=== PATIENT | female | born 1965 | race Two or more races ===

== ENCOUNTER 2016-09-08 08:46 | Emergency (ER) | payer MEDICARE ==
[~2016-09-08] VITALS: Ht 165.1 cm; Wt 65.8 kg
[2016-09-08] MEDS ORDERED: ORPHENADRINE CITRATE 60 MG/2 ML VIAL. IM ONE (10:00)
[2016-09-08] MEDS ORDERED: KETOROLAC TROMETHAMINE 60 MG/2 ML INJ. IM ONE (10:00)
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
[2016-09-08] MEDS ORDERED: HYDR-963 PO (10:20)
[2016-09-08] MEDS ORDERED: METH4TAB2 PO (10:20)
[2016-09-08 10:30] VITALS: BP 109/64
== END 2016-09-08 10:43 | disposition other institution (70) ==
LOC: ER 08:46
DX: G89.29 Other chronic pain (principal); M54.5 Low back pain; F31.9 Bipolar disorder, unspecified; F32.9 Major depressive disorder, single episode, unspecified; Z90.710 Acquired absence of both cervix and uterus; Z90.49 Acquired absence of other specified parts of digestive tract; Z98.51 Tubal ligation status
CPT/HCPCS: 96372; 99284; J1885; J2360

== ENCOUNTER 2016-10-21 11:36 | Emergency (ER) | payer BC ==
[~2016-10-21] VITALS: Ht 165.1 cm; Wt 63.0 kg
[~2016-10-21 11:36] MED LIST: HYDR-963 PO; METH4TAB2 PO
[2016-10-21] MEDS ORDERED: CYCL10TA2 PO (12:40)
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
== END 2016-10-21 12:47 | disposition home or self-care (01) ==
LOC: ER 11:51
DX: M54.41 Lumbago with sciatica, right side (principal); F31.9 Bipolar disorder, unspecified; G47.00 Insomnia, unspecified; Z90.49 Acquired absence of other specified parts of digestive tract; Z90.710 Acquired absence of both cervix and uterus; Z98.51 Tubal ligation status
CPT/HCPCS: 99283

== ENCOUNTER → 2016-12-26 | Outpatient (CLI) | payer BC ==
[2016-10-21 11:46] VITALS: BP 109/73
[~2016-12-26] MED LIST changes: +CYCL10TA2 PO
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
== END | disposition home or self-care (01) ==
LOC: RAD 08:25
PROVIDERS: ATTEND Family Medicine
DX: M25.531 Pain in right wrist (principal)
CPT/HCPCS: 73110

== ENCOUNTER → 2017-01-07 | Outpatient (CLI) | payer BC ==
[2016-10-21 11:46] VITALS: BP 109/73
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
== END | disposition home or self-care (01) ==
LOC: RAD 08:12
PROVIDERS: ATTEND Family Medicine
DX: M50.30 Other cervical disc degeneration, unspecified cervical region (principal)
CPT/HCPCS: 72040

== ENCOUNTER 2021-08-16 03:08 | Emergency (ER) | payer BC, MEDICARE ==
[2016-10-21 11:46] VITALS: BP 109/73
[~2021-08-16 03:08] MED LIST changes: +CYCL10TA19 PO; -CYCL10TA2 PO; +HYDR-3135 PO; -HYDR-963 PO
== END 2021-08-16 03:15 | disposition left against medical advice (07) ==
LOC: ER 03:08
DX: R10.9 Unspecified abdominal pain (principal); R51.9 Headache, unspecified; H57.89 Other specified disorders of eye and adnexa; Z53.21 Procedure and treatment not carried out due to patient leaving prior to being seen by health care provider

== ENCOUNTER 2021-09-03 20:58 | Observation (INO) | payer MEDICARE ==
[~2021-09-03] VITALS: Ht 165.1 cm; Wt 81.6 kg
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
[2021-09-03] MEDS ORDERED: ONDANSETRON PF 4 MG/2 ML VIAL. IVP ONE (22:00)
[2021-09-03] MEDS ORDERED: fentaNYL PF VIAL 100 MCG/2 ML VIAL IVP ONE ×2 (22:00→23:30)
[2021-09-03] MEDS ORDERED: IV NORMAL SALINE 1000ML BAG 1,000 ML IV ONE (22:00)
--- NOTE | 2021-09-03 22:20 | RAD ---
EXAM: ULTRASOUND ABDOMEN LIMITED CLINICAL HISTORY: Right upper quadrant pain, gallstones COMPARISON: None available. TECHNIQUE: Limited ultrasound examination of the right upper quadrant of the abdomen was performed. FINDINGS: The liver length measures 15.9 cm. The common bile duct measures 4.8 mm in transverse dimension. The gallbladder is mildly distended. The gallbladder wall thickness measures 4.5 mm. Multiple echogenicit ies identified within the gallbladder likely gallstones. Minimal pericholecystic fluid identified. Th e pancreas, aorta, IVC are not well-visualized. IMPRESSION: Cholelithiasis with mild gallbladder wall thickening with minimal pericholecystic fluid. Correlate fo r cholecystitis. Electronically signed by: Armand Kaur MD (09/03/2021 10:17 PM) [id number]
[2021-09-03 23:02] LABS: BASO % 1 % (0-3); EOS # 0.1 x10^3/uL (0.0-0.7); EOS % 2 % (0-3); HEMATOCRIT 34.9 % (36.0-47.0); HEMOGLOBIN 11.6 g/dL (12.0-15.5); LYMPH # 1.9 x10^3/uL (1.0-4.8); LYMPH % 36 % (24-48); MEAN CORPUSCULAR HEMOGLOBIN 31 pg (25-35); MEAN CORPUSCULAR HGB CONC 33 g/dL (31-37); MEAN CORPUSCULAR VOLUME 93 fL (79-100); MONO # 0.5 x10^3/uL (0.0-1.1); MONO % 10 % (0-9); NEUT # 2.8 x10^3/uL (1.8-7.7); NEUT % 52 % (31-73); PLATELET COUNT 329 x10^3/uL (140-400); RED BLOOD COUNT 3.77 x10^6/uL (3.50-5.40); RED CELL DISTRIBUTION WIDTH 14.6 % (11.5-14.5); WHITE BLOOD COUNT 5.4 x10^3/uL (4.0-11.0)
[2021-09-03 23:11] LABS: CALCIUM 8.7 mg/dL (8.5-10.1); CREATININE 0.8 mg/dL (0.6-1.0); GFR 73.9
[2021-09-03 23:19] LABS: ALBUMIN 3.5 g/dL (3.4-5.0); ALBUMIN/GLOBULIN RATIO 0.9 (1.0-1.7); TOTAL BILIRUBIN 0.3 mg/dL (0.2-1.0); TOTAL PROTEIN 7.2 g/dL (6.4-8.2)
[2021-09-03] MEDS ORDERED: FAMOTIDINE 20 MG/2 ML VIAL IVP ONE (23:30)
[2021-09-03] MEDS ORDERED: ONDANSETRON PF 4 MG/2 ML VIAL. IVP PRN (23:45)
[2021-09-04] VITALS (14 sets, daily range): BP systolic 98–140; BP diastolic 50–84
[2021-09-04] MEDS ORDERED: MORPHINE SULFATE 4 MG/ML INJ. IVP ONE
[2021-09-04] MEDS ORDERED: IV NORMAL SALINE 1000ML BAG 1,000 ML IV ONE
[2021-09-04] MEDS ORDERED: PIPERACILLIN/TAZOBACTAM 3.375 GM in IV NORMAL SALINE 50ML 50 ML IV ONE (00:15)
[2021-09-04] MEDS: MORPHINE SULFATE 4 MG/ML INJ. IVP PRN ×3 (03:38→08:46)
[2021-09-04] MEDS ORDERED: CLON0.5T PO (04:31)
[2021-09-04] MEDS ORDERED: AMIT25TA PO (04:31)
[2021-09-04] MEDS ORDERED: ZIPR20CA2 PO (04:31)
[2021-09-04 06:14] LABS: BASO % 1 % (0-3); EOS # 0.1 x10^3/uL (0.0-0.7); EOS % 2 % (0-3); HEMATOCRIT 34.8 % (36.0-47.0); HEMOGLOBIN 11.3 g/dL (12.0-15.5); LYMPH # 1.8 x10^3/uL (1.0-4.8); LYMPH % 34 % (24-48); MEAN CORPUSCULAR HEMOGLOBIN 30 pg (25-35); MEAN CORPUSCULAR HGB CONC 32 g/dL (31-37); MEAN CORPUSCULAR VOLUME 93 fL (79-100); MONO # 0.5 x10^3/uL (0.0-1.1); MONO % 10 % (0-9); NEUT # 2.8 x10^3/uL (1.8-7.7); NEUT % 53 % (31-73); PLATELET COUNT 310 x10^3/uL (140-400); RED BLOOD COUNT 3.74 x10^6/uL (3.50-5.40); RED CELL DISTRIBUTION WIDTH 14.8 % (11.5-14.5); WHITE BLOOD COUNT 5.3 x10^3/uL (4.0-11.0)
[2021-09-04 06:41] LABS: ALBUMIN 3.4 g/dL (3.4-5.0); CALCIUM 8.7 mg/dL (8.5-10.1); CREATININE 0.9 mg/dL (0.6-1.0); GFR 64.5; POTASSIUM 4.2 mmol/L (3.5-5.1); TOTAL BILIRUBIN 0.4 mg/dL (0.2-1.0); TOTAL PROTEIN 6.9 g/dL (6.4-8.2)
--- NOTE | 2021-09-04 08:14 | PDOC1 ---
History and Physical Date of Admission Date of Admission DATE: 09/04/21 TIME: 08:14 Identification/Chief Complaint Chief Complaint Abdominal pain Source Source: Patient History of Present Illness History of Present Illness Patient is a 55-year-old female with past medical history bipolar disorder and DDD, who presents to the ED with a complaint of right upper quadrant pain since yesterday. She reports a sudden onset of sharp pain, 10/10. She notes associated nausea and vomiting. Labs in the ED were largely unremarkable except for mild normocytic anemia. Ultrasound taken in the ED showed cholelithiasis with mild gallbladder wall thickening with minimal pericholecystic fluid. At the time of my evaluation patient is still complaining of significant pain. She is admitted for further medical management. Past Medical History Past Medical History Bipolar disorder, DDD Past Surgical History Past Surgical History Partial hysterectomy, carpal tunnel surgery, appendectomy Family History Family History DM2, HTN, CAD Social History Smoke: <1 pack per day ALCOHOL: none Drugs: None Current Problem List Problem List Problems Medical Problems: (1) Acute cholecystitis Status: Acute Current Medications Current Medications Current Medications Sodium Chloride 1,000 ml @ 1,000 mls/hr 1X ONCE IV Last administered on 09/03/21 21:42; Start 09/03/21 at 22:00; Stop 09/03/21 at 22:59; Status DC Ondansetron HCl (Zofran) 4 mg 1X ONCE IVP Last administered on 09/03/21 21:42; Start 09/03/21 at 22:00; Stop 09/03/21 at 22:01; Status DC Fentanyl Citrate (Fentanyl 2ml Vial) 50 mcg 1X ONCE IVP Last administered on 09/03/21 21:42; Start 09/03/21 at 22:00; Stop 09/03/21 at 22:01; Status DC Fentanyl Citrate (Fentanyl 2ml Vial) 50 mcg 1X ONCE IVP Last administered on 09/03/21at 23:02; Start 09/03/21 at 23:30; Stop 09/03/21 at 23:31; Status DC Famotidine (Pepcid Vial) 20 mg 1X ONCE IVP Last administered on 09/03/21at 23:14; Start 09/03/21 at 23:30; Stop 09/03/21 at 23:31; Status DC Morphine Sulfate (Morphine Sulfate) 4 mg 1X ONCE IVP Last administered on 09/04/21at 00:06; Start 09/04/21 at 00:00; Stop 09/04/21 at 00:01; Status DC Ondansetron HCl (Zofran) 4 mg PRN Q8HRS PRN IVP NAUSEA/VOMITING 1ST CHOICE Last administered on 09/04/21at 00:06; Start 09/03/21 at 23:45; Stop 09/04/21 at 23:44 Morphine Sulfate (Morphine Sulfate) 4 mg PRN Q2HR PRN IVP SEVERE PAIN 7-10 Last administered on 09/04/21at 05:40; Start 09/03/21 at 23:45; Stop 09/04/21 at 23:44 Sodium Chloride 1,000 ml @ 75 mls/hr 1X ONCE IV Last administered on 09/04/21at 00:00; Start 09/04/21 at 00:00; Stop 09/04/21 at 13:19 Piperacillin Sod/ Tazobactam Sod 3.375 gm/Sodium Chloride 50 ml @ 100 mls/hr 1X ONCE IV Last administered on 09/04/21at 00:08; Start 09/04/21 at 00:15; Stop 09/04/21 at 00:44; Status DC Fentanyl Citrate (Fentanyl 2ml Vial) 25 mcg PRN Q5MIN PRN IVP MILD PAIN 1-3; Start 09/04/21 at 08:15; Stop 09/05/21 at 08:14 Fentanyl Citrate (Fentanyl 2ml Vial) 50 mcg PRN Q5MIN PRN IVP MODERATE PAIN 4- 6; Start 09/04/21 at 08:15; Stop 09/05/21 at 08:14 Morphine Sulfate (Morphine Sulfate) 1 mg PRN Q10MIN PRN IVP SEVERE PAIN 7-10; Start 09/04/21 at 08:15; Stop 09/05/21 at 08:14 Ringer's Solution 1,000 ml @ 30 mls/hr Q24H IV ; Start 09/04/21 at 08:15; Stop 09/04/21 at 20:14 Hydromorphone HCl (Dilaudid) 0.5 mg PRN Q10MIN PRN IVP SEVERE PAIN 7-10, 2nd CHOICE; Start 09/04/21 at 08:15; Stop 09/05/21 at 08:14 Prochlorperazine Edisylate (Compazine) 5 mg PACU PRN PRN IVP NAUSEA, MRX1; Start 09/04/21 at 08:15; Stop 09/05/21 at 08:14 Active Scripts Active Cyclobenzaprine Hcl 10 Mg Tablet 10 Mg PO TID Medrol (Methylprednisolone) 4 Mg Tab.ds.pk 1 Pkg PO UD [place] 10-325 Tablet (Acetaminophen/Hydrocodone Bitart) 1 Each Tablet 1 Tab PO Q6HRS PRN Reported Amitriptyline Hcl 25 Mg Tablet 1 Tab PO QHS Klonopin (Clonazepam) 0.5 Mg Tablet 0.5 Mg PO BID Geodon (Ziprasidone Hcl) 20 Mg Capsule 1 Cap PO BID Allergies Allergies: Coded Allergies: No Known Drug Allergies (Unverified , 09/08/16) ROS Review of System GENERAL: No history of weight change, weakness or fevers. SKIN: No bruising, hair changes or rashes. EYES: No blurred, double or loss of vision. NOSE AND THROAT: No history of nosebleeds, hoarseness or sore throat. HEART: Denies chest pain, denies palpitations. LUNGS: Denies cough, hemoptysis, wheezing or shortness of breath. GASTROINTESTINAL: Abdominal pain, nausea, vomiting. GENITOURINARY: Denies dysuria, frequency, urgency, hematuria. NEUROLOGIC: Denies history of numbness, tingling, tremor or weakness. PSYCHIATRIC: Denies anxiety, denies depression. ENDOCRINE: No history of heat or cold intolerance, polyuria or polydipsia. EXTREMITIES: Denies muscle weakness, joint pain, pain on walking or stiffness. Physical Exam Physical Exam General: Alert, Oriented X3, Cooperative, No acute distress HEENT: PERRLA, EOMI Lungs: Clear to auscultation, Normal air movement Heart: RRR, no murmurs Cardiovascular: S1, S2 Abdomen: Right upper quadrant tenderness Extremities: No clubbing, No cyanosis Skin: No rashes, No significant lesion Neuro: Normal speech, Normal tone, Sensation intact Psych/Mental Status: Mental status NL, Mood NL Vitals Vitals Vital Signs Date Time Temp Pulse Resp B/P (MAP) Pulse Ox O2 Delivery O2 Flow Rate FiO2 09/04/21 07:00 98.6 74 18 111/62 (78) 97 98.6 09/04/21 05:40 Room Air Labs Labs Laboratory Tests Test 09/03/21 22:57 09/04/21 04:45 White Blood Count 5.4 x10^3/uL (4.0-11.0) 5.3 x10^3/uL (4.0-11.0) Red Blood Count 3.77 x10^6/uL (3.50-5.40) 3.74 x10^6/uL (3.50-5.40) Hemoglobin 11.6 g/dL (12.0-15.5) 11.3 g/dL (12.0-15.5) Hematocrit 34.9 % (36.0-47.0) 34.8 % (36.0-47.0) Mean Corpuscular Volume 93 fL (79-100) 93 fL (79-100) Mean Corpuscular Hemoglobin 31 pg (25-35) 30 pg (25-35) Mean Corpuscular Hemoglobin Concent 33 g/dL (31-37) 32 g/dL (31-37) Red Cell Distribution Width 14.6 % (11.5-14.5) 14.8 % (11.5-14.5) Platelet Count 329 x10^3/uL (140-400) 310 x10^3/uL (140-400) Neutrophils (%) (Auto) 52 % (31-73) 53 % (31-73) Lymphocytes (%) (Auto) 36 % (24-48) 34 % (24-48) Monocytes (%) (Auto) 10 % (0-9) 10 % (0-9) Eosinophils (%) (Auto) 2 % (0-3) 2 % (0-3) Basophils (%) (Auto) 1 % (0-3) 1 % (0-3) Neutrophils # (Auto) 2.8 x10^3/uL (1.8-7.7) 2.8 x10^3/uL (1.8-7.7) Lymphocytes # (Auto) 1.9 x10^3/uL (1.0-4.8) 1.8 x10^3/uL (1.0-4.8) Monocytes # (Auto) 0.5 x10^3/uL (0.0-1.1) 0.5 x10^3/uL (0.0-1.1) Eosinophils # (Auto) 0.1 x10^3/uL (0.0-0.7) 0.1 x10^3/uL (0.0-0.7) Basophils # (Auto) 0.0 x10^3/uL (0.0-0.2) 0.0 x10^3/uL (0.0-0.2) Sodium Level 141 mmol/L (136-145) 142 mmol/L (136-145) Potassium Level 4.0 mmol/L (3.5-5.1) 4.2 mmol/L (3.5-5.1) Chloride Level 108 mmol/L (98-107) 109 mmol/L (98-107) Carbon Dioxide Level 24 mmol/L (21-32) 24 mmol/L (21-32) Anion Gap 9 (6-14) 9 (6-14) Blood Urea Nitrogen 7 mg/dL (7-20) 7 mg/dL (7-20) Creatinine 0.8 mg/dL (0.6-1.0) 0.9 mg/dL (0.6-1.0) Estimated GFR (Cockcroft-Gault) 73.9 64.5 BUN/Creatinine Ratio 9 (6-20) 8 (6-20) Glucose Level 108 mg/dL (70-99) 89 mg/dL (70-99) Calcium Level 8.7 mg/dL (8.5-10.1) 8.7 mg/dL (8.5-10.1) Total Bilirubin 0.3 mg/dL (0.2-1.0) 0.4 mg/dL (0.2-1.0) Aspartate Amino Transf (AST/SGOT) 14 U/L (15-37) 14 U/L (15-37) Alanine Aminotransferase (ALT/SGPT) 24 U/L (14-59) 21 U/L (14-59) Alkaline Phosphatase 104 U/L (46-116) 98 U/L (46-116) Total Protein 7.2 g/dL (6.4-8.2) 6.9 g/dL (6.4-8.2) Albumin 3.5 g/dL (3.4-5.0) 3.4 g/dL (3.4-5.0) Albumin/Globulin Ratio 0.9 (1.0-1.7) 1.0 (1.0-1.7) Lipase 118 U/L (73-393) Laboratory Tests Test 09/03/21 22:57 09/04/21 04:45 White Blood Count 5.4 x10^3/uL (4.0-11.0) 5.3 x10^3/uL (4.0-11.0) Red Blood Count 3.77 x10^6/uL (3.50-5.40) 3.74 x10^6/uL (3.50-5.40) Hemoglobin 11.6 g/dL (12.0-15.5) 11.3 g/dL (12.0-15.5) Hematocrit 34.9 % (36.0-47.0) 34.8 % (36.0-47.0) Mean Corpuscular Volume 93 fL (79-100) 93 fL (79-100) Mean Corpuscular Hemoglobin 31 pg (25-35) 30 pg (25-35) Mean Corpuscular Hemoglobin Concent 33 g/dL (31-37) 32 g/dL (31-37) Red Cell Distribution Width 14.6 % (11.5-14.5) 14.8 % (11.5-14.5) Platelet Count 329 x10^3/uL (140-400) 310 x10^3/uL (140-400) Neutrophils (%) (Auto) 52 % (31-73) 53 % (31-73) Lymphocytes (%) (Auto) 36 % (24-48) 34 % (24-48) Monocytes (%) (Auto) 10 % (0-9) 10 % (0-9) Eosinophils (%) (Auto) 2 % (0-3) 2 % (0-3) Basophils (%) (Auto) 1 % (0-3) 1 % (0-3) Neutrophils # (Auto) 2.8 x10^3/uL (1.8-7.7) 2.8 x10^3/uL (1.8-7.7) Lymphocytes # (Auto) 1.9 x10^3/uL (1.0-4.8) 1.8 x10^3/uL (1.0-4.8) Monocytes # (Auto) 0.5 x10^3/uL (0.0-1.1) 0.5 x10^3/uL (0.0-1.1) Eosinophils # (Auto) 0.1 x10^3/uL (0.0-0.7) 0.1 x10^3/uL (0.0-0.7) Basophils # (Auto) 0.0 x10^3/uL (0.0-0.2) 0.0 x10^3/uL (0.0-0.2) Sodium Level 141 mmol/L (136-145) 142 mmol/L (136-145) Potassium Level 4.0 mmol/L (3.5-5.1) 4.2 mmol/L (3.5-5.1) Chloride Level 108 mmol/L (98-107) 109 mmol/L (98-107) Carbon Dioxide Level 24 mmol/L (21-32) 24 mmol/L (21-32) Anion Gap 9 (6-14) 9 (6-14) Blood Urea Nitrogen 7 mg/dL (7-20) 7 mg/dL (7-20) Creatinine 0.8 mg/dL (0.6-1.0) 0.9 mg/dL (0.6-1.0) Estimated GFR (Cockcroft-Gault) 73.9 64.5 BUN/Creatinine Ratio 9 (6-20) 8 (6-20) Glucose Level 108 mg/dL (70-99) 89 mg/dL (70-99) Calcium Level 8.7 mg/dL (8.5-10.1) 8.7 mg/dL (8.5-10.1) Total Bilirubin 0.3 mg/dL (0.2-1.0) 0.4 mg/dL (0.2-1.0) Aspartate Amino Transf (AST/SGOT) 14 U/L (15-37) 14 U/L (15-37) Alanine Aminotransferase (ALT/SGPT) 24 U/L (14-59) 21 U/L (14-59) Alkaline Phosphatase 104 U/L (46-116) 98 U/L (46-116) Total Protein 7.2 g/dL (6.4-8.2) 6.9 g/dL (6.4-8.2) Albumin 3.5 g/dL (3.4-5.0) 3.4 g/dL (3.4-5.0) Albumin/Globulin Ratio 0.9 (1.0-1.7) 1.0 (1.0-1.7) Lipase 118 U/L (73-393) Images Images PATIENT: ELFEGO SANDS I ACCOUNT: [id number] : 1965 LOCATION: ER AGE: 55 SEX: F EXAM STATUS: REG ER ORD. 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 TECHNIQUE: Limited ultrasound examination of the right upper quadrant of the abdomen was performed. FINDINGS: The liver length measures 15.9 cm. The common bile duct measures 4.8 mm in transverse dimension. The gallbladder is mildly distended. The gallbladder wall thickness measures 4.5 mm. Multiple echogenicities identified within the gallbladder likely gallstones. Minimal pericholecystic fluid identified. The pancreas, aorta, IVC are not well-visualized. IMPRESSION: Cholelithiasis with mild gallbladder wall thickening with minimal pericholecystic fluid. Correlate for cholecystitis. VTE Prophylaxis Ordered VTE Prophylaxis Devices: No VTE Pharmacological Prophylaxi: Yes Assessment/Plan Assessment/Plan Cholecystitis Plan: We will consult general surgery Discussed with patient, given the relatively moderate nature of her symptoms that she may not have surgery today. If that is the case I would recommend a liquid diet, but no fatty or greasy foods. We will provide adequate pain control Resume home medications FEN - NPO PPX - Heparin FULL CODE Dispo - inpatient for above Justifications for Admission Other Justification RAFITA DAMICO MD Sep 04, 2021 08:14
[2021-09-04] MEDS ORDERED: IV RINGERS,LACTATED 1000ML 1,000 ML IV SCH (08:15)
[2021-09-04] MEDS ORDERED: fentaNYL PF VIAL 100 MCG/2 ML VIAL IVP PRN (08:15)
[2021-09-04] MEDS ORDERED: MAG HYDROX/ALUMINUM HYD/SIMETH 30 ML ORAL.SUSP PO PRN (09:00)
[2021-09-04] MEDS ORDERED: ONDANSETRON PF 4 MG/2 ML VIAL. IVP PRN ×2 (09:00→14:30)
[2021-09-04] MEDS ORDERED: MORPHINE SULFATE 10 MG/ML VIAL. IVP PRN (09:00)
[2021-09-04] MEDS ORDERED: CALCIUM CARBONATE 500 MG TAB.CHEW PO PRN (09:00)
[2021-09-04] MEDS ORDERED: ACETAMINOPHEN 325 MG TABLET. PO PRN (09:00)
[2021-09-04] MEDS ORDERED: ZOLPIDEM 5 MG TABLET. PO PRN (09:00)
[2021-09-04] MEDS ORDERED: FAMOTIDINE 20 MG/2 ML VIAL IVP PRN (10:00)
[2021-09-04] MEDS ORDERED: BUPIVACAINE-EPI 0.5% 30 ML VIAL KIT. ONE (10:55)
[2021-09-04] MEDS ORDERED: BISACODYL 10 MG SUPP.RECT. ONE (10:55)
[2021-09-04] MEDS ORDERED: IOHEXOL 300 MG/ML 50 ML VIAL. ONE (10:55)
[2021-09-04] MEDS ORDERED: SURGICEL HEMOSTAT 4X8 EACH. ONE (10:55)
--- NOTE | 2021-09-04 11:09 | PDOC2 ---
CONSULT Date of Consult Date of Consult DATE: 09/04/21 TIME: 11:04 Reason for Consult Reason for Consult: Cholecystitis Referring Physician Referring Physician: Dr. Conteh Identification/Chief Complaint Chief Complaint RUQ abd pain Source Source: Chart review, Patient History of Present Illness Reason for Visit: 55 yo F with gallstone (noted on imaging and was concerning for cancer, but noted to be gallstone, per pt). Pt with c/o RUQ acute onset yesterday. No previous episodes. Past Medical History Psych: Bipolar Musculoskeletal: Osteoarthritis Past Surgical History Past Surgical History: Appendectomy (open), Hysterectomy Family History Family History: No Significant Social History <1 pack per day ALCOHOL: none Drugs: None Current Problem List Problem List Problems Medical Problems: (1) Acute cholecystitis Status: Acute Current Medications Current Medications Current Medications Sodium Chloride 1,000 ml @ 1,000 mls/hr 1X ONCE IV Last administered on 09/03/21 21:42; Start 09/03/21 at 22:00; Stop 09/03/21 at 22:59; Status DC Ondansetron HCl (Zofran) 4 mg 1X ONCE IVP Last administered on 09/03/21 21:42; Start 09/03/21 at 22:00; Stop 09/03/21 at 22:01; Status DC Fentanyl Citrate (Fentanyl 2ml Vial) 50 mcg 1X ONCE IVP Last administered on 09/03/21 21:42; Start 09/03/21 at 22:00; Stop 09/03/21 at 22:01; Status DC Fentanyl Citrate (Fentanyl 2ml Vial) 50 mcg 1X ONCE IVP Last administered on 09/03/21at 23:02; Start 09/03/21 at 23:30; Stop 09/03/21 at 23:31; Status DC Famotidine (Pepcid Vial) 20 mg 1X ONCE IVP Last administered on 09/03/21at 23:14; Start 09/03/21 at 23:30; Stop 09/03/21 at 23:31; Status DC Morphine Sulfate (Morphine Sulfate) 4 mg 1X ONCE IVP Last administered on 09/04/21at 00:06; Start 09/04/21 at 00:00; Stop 09/04/21 at 00:01; Status DC Ondansetron HCl (Zofran) 4 mg PRN Q8HRS PRN IVP NAUSEA/VOMITING 1ST CHOICE Last administered on 09/04/21at 00:06; Start 09/03/21 at 23:45; Stop 09/04/21 at 23:44 Morphine Sulfate (Morphine Sulfate) 4 mg PRN Q2HR PRN IVP SEVERE PAIN 7-10 Last administered on 09/04/21at 08:46; Start 09/03/21 at 23:45; Stop 09/04/21 at 23:44 Sodium Chloride 1,000 ml @ 75 mls/hr 1X ONCE IV Last administered on 09/04/21at 00:00; Start 09/04/21 at 00:00; Stop 09/04/21 at 13:19 Piperacillin Sod/ Tazobactam Sod 3.375 gm/Sodium Chloride 50 ml @ 100 mls/hr 1X ONCE IV Last administered on 09/04/21at 00:08; Start 09/04/21 at 00:15; Stop 09/04/21 at 00:44; Status DC Fentanyl Citrate (Fentanyl 2ml Vial) 25 mcg PRN Q5MIN PRN IVP MILD PAIN 1-3; Start 09/04/21 at 08:15; Stop 09/05/21 at 08:14 Fentanyl Citrate (Fentanyl 2ml Vial) 50 mcg PRN Q5MIN PRN IVP MODERATE PAIN 4- 6; Start 09/04/21 at 08:15; Stop 09/05/21 at 08:14 Morphine Sulfate (Morphine Sulfate) 1 mg PRN Q10MIN PRN IVP SEVERE PAIN 7-10; Start 09/04/21 at 08:15; Stop 09/05/21 at 08:14 Ringer's Solution 1,000 ml @ 30 mls/hr Q24H IV ; Start 09/04/21 at 08:15; Stop 09/04/21 at 20:14 Hydromorphone HCl (Dilaudid) 0.5 mg PRN Q10MIN PRN IVP SEVERE PAIN 7-10, 2nd CHOICE; Start 09/04/21 at 08:15; Stop 09/05/21 at 08:14 Prochlorperazine Edisylate (Compazine) 5 mg PACU PRN PRN IVP NAUSEA, MRX1; Start 09/04/21 at 08:15; Stop 09/05/21 at 08:14 Morphine Sulfate (Morphine Sulfate) 5 mg PRN Q2HR PRN IVP PAIN; Start 09/04/21 at 09:00 Ondansetron HCl (Zofran) 4 mg PRN Q6HRS PRN IVP NAUSEA/VOMITING; Start 09/04/21 at 09:00 Al Hydroxide/Mg Hydroxide (Mylanta Plus Xs) 30 ml PRN Q3HRS PRN PO HEARTBURN / GAS; Start 09/04/21 at 09:00 Calcium Carbonate/ Glycine (Tums) 500 mg PRN Q3HRS PRN PO UPSET STOMACH; Start 09/04/21 at 09:00 Zolpidem Tartrate (Ambien) 5 mg PRN QHS PRN PO INSOMNIA, MAY REPEAT IN 1HR; Start 09/04/21 at 09:00 Acetaminophen (Tylenol) 650 mg PRN Q6HRS PRN PO Headaches, Temp > 101.5F; Start 09/04/21 at 09:00 Heparin Sodium (Porcine) (Heparin Sodium) 5,000 unit Q8HRS SQ ; Start 09/04/21 at 14:00 Famotidine (Pepcid Vial) 20 mg PRN Q12HR PRN IVP HEARTBURN / GAS Last administered on 09/04/21at 10:31; Start 09/04/21 at 10:00 Bupivacaine HCl/ Epinephrine Bitart (Sensorcain-Epi 0.5% Kit) 30 ml STK-MED ONCE .ROUTE ; Start 09/04/21 at 10:55; Stop 09/04/21 at 10:55; Status DC Iohexol (Omnipaque 300 Mg/ml) 50 ml STK-MED ONCE .ROUTE ; Start 09/04/21 at 10:55; Stop 09/04/21 at 10:55; Status DC Cellulose (Surgicel Hemostat 4x8) 1 each STK-MED ONCE .ROUTE ; Start 09/04/21 at 10:55; Stop 09/04/21 at 10:55; Status DC Bisacodyl (Dulcolax Supp) 10 mg STK-MED ONCE .ROUTE ; Start 09/04/21 at 10:55; Stop 09/04/21 at 10:56; Status DC Heparin Sodium (Porcine) 1000 unit/Sodium Chloride 1,001 ml @ 1,001 mls/hr 1X ONCE IRR ; Start 09/04/21 at 11:00; Stop 09/04/21 at 11:59 Active Scripts Active Cyclobenzaprine Hcl 10 Mg Tablet 10 Mg PO TID Medrol (Methylprednisolone) 4 Mg Tab.ds.pk 1 Pkg PO UD [place] 10-325 Tablet (Acetaminophen/Hydrocodone Bitart) 1 Each Tablet 1 Tab PO Q6HRS PRN Reported Amitriptyline Hcl 25 Mg Tablet 1 Tab PO QHS Klonopin (Clonazepam) 0.5 Mg Tablet 0.5 Mg PO BID Geodon (Ziprasidone Hcl) 20 Mg Capsule 1 Cap PO BID Allergies Allergies: Coded Allergies: No Known Drug Allergies (Unverified , 09/08/16) ROS Gastrointestinal: Yes Abdominal Pain Physical Exam General: Alert, Oriented X3, Cooperative, mild distress HEENT: Atraumatic Lungs: Normal air movement Abdomen: Soft, Other (TTP RUQ) Extremities: No clubbing, No cyanosis Skin: No rashes, No breakdown Neuro: Normal speech, Sensation intact Psych/Mental Status: Mental status NL, Mood NL Vitals VITALS Vital Signs Date Time Temp Pulse Resp B/P (MAP) Pulse Ox O2 Delivery O2 Flow Rate FiO2 09/04/21 08:47 Room Air 09/04/21 07:00 98.6 74 18 111/62 (78) 97 98.6 Labs Labs Laboratory Tests Test 09/03/21 22:57 09/04/21 04:45 09/04/21 08:16 White Blood Count 5.4 x10^3/uL (4.0-11.0) 5.3 x10^3/uL (4.0-11.0) Red Blood Count 3.77 x10^6/uL (3.50-5.40) 3.74 x10^6/uL (3.50-5.40) Hemoglobin 11.6 g/dL (12.0-15.5) 11.3 g/dL (12.0-15.5) Hematocrit 34.9 % (36.0-47.0) 34.8 % (36.0-47.0) Mean Corpuscular Volume 93 fL (79-100) 93 fL (79-100) Mean Corpuscular Hemoglobin 31 pg (25-35) 30 pg (25-35) Mean Corpuscular Hemoglobin Concent 33 g/dL (31-37) 32 g/dL (31-37) Red Cell Distribution Width 14.6 % (11.5-14.5) 14.8 % (11.5-14.5) Platelet Count 329 x10^3/uL (140-400) 310 x10^3/uL (140-400) Neutrophils (%) (Auto) 52 % (31-73) 53 % (31-73) Lymphocytes (%) (Auto) 36 % (24-48) 34 % (24-48) Monocytes (%) (Auto) 10 % (0-9) 10 % (0-9) Eosinophils (%) (Auto) 2 % (0-3) 2 % (0-3) Basophils (%) (Auto) 1 % (0-3) 1 % (0-3) Neutrophils # (Auto) 2.8 x10^3/uL (1.8-7.7) 2.8 x10^3/uL (1.8-7.7) Lymphocytes # (Auto) 1.9 x10^3/uL (1.0-4.8) 1.8 x10^3/uL (1.0-4.8) Monocytes # (Auto) 0.5 x10^3/uL (0.0-1.1) 0.5 x10^3/uL (0.0-1.1) Eosinophils # (Auto) 0.1 x10^3/uL (0.0-0.7) 0.1 x10^3/uL (0.0-0.7) Basophils # (Auto) 0.0 x10^3/uL (0.0-0.2) 0.0 x10^3/uL (0.0-0.2) Sodium Level 141 mmol/L (136-145) 142 mmol/L (136-145) Potassium Level 4.0 mmol/L (3.5-5.1) 4.2 mmol/L (3.5-5.1) Chloride Level 108 mmol/L (98-107) 109 mmol/L (98-107) Carbon Dioxide Level 24 mmol/L (21-32) 24 mmol/L (21-32) Anion Gap 9 (6-14) 9 (6-14) Blood Urea Nitrogen 7 mg/dL (7-20) 7 mg/dL (7-20) Creatinine 0.8 mg/dL (0.6-1.0) 0.9 mg/dL (0.6-1.0) Estimated GFR (Cockcroft-Gault) 73.9 64.5 BUN/Creatinine Ratio 9 (6-20) 8 (6-20) Glucose Level 108 mg/dL (70-99) 89 mg/dL (70-99) Calcium Level 8.7 mg/dL (8.5-10.1) 8.7 mg/dL (8.5-10.1) Total Bilirubin 0.3 mg/dL (0.2-1.0) 0.4 mg/dL (0.2-1.0) Aspartate Amino Transf (AST/SGOT) 14 U/L (15-37) 14 U/L (15-37) Alanine Aminotransferase (ALT/SGPT) 24 U/L (14-59) 21 U/L (14-59) Alkaline Phosphatase 104 U/L (46-116) 98 U/L (46-116) Total Protein 7.2 g/dL (6.4-8.2) 6.9 g/dL (6.4-8.2) Albumin 3.5 g/dL (3.4-5.0) 3.4 g/dL (3.4-5.0) Albumin/Globulin Ratio 0.9 (1.0-1.7) 1.0 (1.0-1.7) Lipase 118 U/L (73-393) SARS-CoV-2 Antigen (Rapid) Negative (NEGATIVE) Laboratory Tests Test 09/03/21 22:57 09/04/21 04:45 09/04/21 08:16 White Blood Count 5.4 x10^3/uL (4.0-11.0) 5.3 x10^3/uL (4.0-11.0) Red Blood Count 3.77 x10^6/uL (3.50-5.40) 3.74 x10^6/uL (3.50-5.40) Hemoglobin 11.6 g/dL (12.0-15.5) 11.3 g/dL (12.0-15.5) Hematocrit 34.9 % (36.0-47.0) 34.8 % (36.0-47.0) Mean Corpuscular Volume 93 fL (79-100) 93 fL (79-100) Mean Corpuscular Hemoglobin 31 pg (25-35) 30 pg (25-35) Mean Corpuscular Hemoglobin Concent 33 g/dL (31-37) 32 g/dL (31-37) Red Cell Distribution Width 14.6 % (11.5-14.5) 14.8 % (11.5-14.5) Platelet Count 329 x10^3/uL (140-400) 310 x10^3/uL (140-400) Neutrophils (%) (Auto) 52 % (31-73) 53 % (31-73) Lymphocytes (%) (Auto) 36 % (24-48) 34 % (24-48) Monocytes (%) (Auto) 10 % (0-9) 10 % (0-9) Eosinophils (%) (Auto) 2 % (0-3) 2 % (0-3) Basophils (%) (Auto) 1 % (0-3) 1 % (0-3) Neutrophils # (Auto) 2.8 x10^3/uL (1.8-7.7) 2.8 x10^3/uL (1.8-7.7) Lymphocytes # (Auto) 1.9 x10^3/uL (1.0-4.8) 1.8 x10^3/uL (1.0-4.8) Monocytes # (Auto) 0.5 x10^3/uL (0.0-1.1) 0.5 x10^3/uL (0.0-1.1) Eosinophils # (Auto) 0.1 x10^3/uL (0.0-0.7) 0.1 x10^3/uL (0.0-0.7) Basophils # (Auto) 0.0 x10^3/uL (0.0-0.2) 0.0 x10^3/uL (0.0-0.2) Sodium Level 141 mmol/L (136-145) 142 mmol/L (136-145) Potassium Level 4.0 mmol/L (3.5-5.1) 4.2 mmol/L (3.5-5.1) Chloride Level 108 mmol/L (98-107) 109 mmol/L (98-107) Carbon Dioxide Level 24 mmol/L (21-32) 24 mmol/L (21-32) Anion Gap 9 (6-14) 9 (6-14) Blood Urea Nitrogen 7 mg/dL (7-20) 7 mg/dL (7-20) Creatinine 0.8 mg/dL (0.6-1.0) 0.9 mg/dL (0.6-1.0) Estimated GFR (Cockcroft-Gault) 73.9 64.5 BUN/Creatinine Ratio 9 (6-20) 8 (6-20) Glucose Level 108 mg/dL (70-99) 89 mg/dL (70-99) Calcium Level 8.7 mg/dL (8.5-10.1) 8.7 mg/dL (8.5-10.1) Total Bilirubin 0.3 mg/dL (0.2-1.0) 0.4 mg/dL (0.2-1.0) Aspartate Amino Transf (AST/SGOT) 14 U/L (15-37) 14 U/L (15-37) Alanine Aminotransferase (ALT/SGPT) 24 U/L (14-59) 21 U/L (14-59) Alkaline Phosphatase 104 U/L (46-116) 98 U/L (46-116) Total Protein 7.2 g/dL (6.4-8.2) 6.9 g/dL (6.4-8.2) Albumin 3.5 g/dL (3.4-5.0) 3.4 g/dL (3.4-5.0) Albumin/Globulin Ratio 0.9 (1.0-1.7) 1.0 (1.0-1.7) Lipase 118 U/L (73-393) SARS-CoV-2 Antigen (Rapid) Negative (NEGATIVE) Images Images US with gallstone in neck of gallbladder Assessment/Plan Assessment/Plan Calculous cholecystitis TO OR for laparoscopic versus open cholecystectomy with cholangiogram. R/R/B/A d/w pt. Risks, including, but not limited to: bleeding, infection, damage to surrounding structures, risk of anesthesia, risk of open. She appears to understand, her questions are answered and she elects to proceed. Thanks for consult! SUYAPA HASSAN MD Sep 04, 2021 11:09
[2021-09-04] MEDS ORDERED: fentaNYL PF VIAL 100 MCG/2 ML VIAL ONE ×4 (11:39→14:13)
[2021-09-04] MEDS: fentaNYL PF VIAL 100 MCG/2 ML VIAL IVP PRN ×2 (11:41→12:22)
[2021-09-04] MEDS ORDERED: LIDOCAINE 2% PF 5 ML VIAL. ONE (12:53)
[2021-09-04] MEDS ORDERED: PROPOFOL 10 MG/ML (20ML) VIAL. IV ONE (12:53)
[2021-09-04] MEDS ORDERED: DEXAMETHASONE SOD PHOS 4 MG/ML VIAL ONE ×2 (12:53→14:02)
[2021-09-04] MEDS ORDERED: ONDANSETRON PF 4 MG/2 ML VIAL. ONE (12:53)
[2021-09-04] MEDS ORDERED: ROCURONIUM 50 MG/5 ML VIAL. ONE (12:53)
[2021-09-04] MEDS ORDERED: SUCCINYLCHOLINE 200 MG/10 ML VIAL. ONE (13:05)
[2021-09-04] MEDS: HEPARIN 1,000 UNIT in IV NORMAL SALINE 1,000 ML for SURG PERIOP IRR ONE ×2 (13:34→13:41)
[2021-09-04] MEDS ORDERED: NEOSTIGMINE METHYLSULFATE 5 MG/5 ML SYRINGE. ONE ×2 (14:02→14:04)
[2021-09-04] MEDS ORDERED: GLYCOPYRROLATE 1 MG/5 ML VIAL. ONE (14:03)
[2021-09-04] MEDS ORDERED: IV NORMAL SALINE 1000ML BAG 1,000 ML IV SCH (14:30)
[2021-09-04] MEDS ORDERED: DEXTROSE 50% 25 GM / 50ML DISP.SYRIN. IV PRN (14:30)
[2021-09-04] MEDS: IV RINGERS,LACTATED 1000ML 1,000 ML IV SCH ×2 (14:30→20:03)
[2021-09-04] MEDS ORDERED: IV DEXTROSE 5% 250 ML BAG. IV PRN (14:30)
[2021-09-04] MEDS ORDERED: NALOXONE 0.4 MG/ML VIAL. IV PRN (14:30)
[2021-09-04] MEDS ORDERED: 0.9 % SODIUM CHLORIDE 10 ML DISP.SYRIN. IV PRN (14:30)
--- NOTE | 2021-09-04 14:31 | PDOC4 ---
OPERATIVE NOTE Date: Date: Sep 04, 2021 Pre-Op Diagnosis: Cholecystitis Post-Op Diagnosis: same Procedure Performed: laparoscopic cholecystectomy with cholangiogram Surgeon: Rj Hassan Anesthesia Type: GETA plus local Blood Loss: 50 Specimans Obtained: gallbladder Findings: distended gallbladder, white bile, adhesions to gallbladder, normal cholangiogram Complications: none Operative Note: After obtaining informed consent, patient was taken to OR, induced under GETA and prepped in the usual fashion. 5 mm ports placed umbilical and RUQ, 12 port placed epigastric, all under laparoscopic guidance. Abdominal cavity was explored and normal except as above. Gallbladder was taken off fossa in dome down fashion using cautery. Anterior and posterior cystic arteries ligated with clips. Cholangiogram was obtained via cystic duct and was normal. Cystic duct controlled with hemolok and clips. Gallbladder was placed in bag, delivered and sent to pathology. Copious irrigation. No evidence of bleeding or other pathology. Ports removed without bleeding. Fascia repaired with 0 vicryl. Skin repaired with 4 0 monocryl. Dressing placed. Patient tolerated procedure well and sent to PACU in stable condition. All counts correct. Wound class is 3. SUYAPA HASSAN MD Sep 04, 2021 14:31
[2021-09-04] MEDS ORDERED: HYDROmorphone 2 MG/ML INJ. ONE (14:39)
[2021-09-04] MEDS: HYDROmorphone 2 MG/ML INJ. IVP PRN ×4 (14:41→15:44)
[2021-09-04] MEDS ORDERED: PROCHLORPERAZINE 10 MG/2 ML VIAL. ONE (14:48)
[2021-09-04] MEDS ORDERED: MORPHINE SULFATE 2 MG/ML INJ. ONE (14:48)
[2021-09-04] MEDS: PROCHLORPERAZINE 10 MG/2 ML VIAL. IVP PRN ×2 (14:49→15:07)
[2021-09-04] MEDS: MORPHINE SULFATE 2 MG/ML INJ. IVP PRN ×2 (14:51→15:07)
[2021-09-04] MEDS ORDERED: MIDAZOLAM HCL/PF 2 MG/2 ML VIAL. ONE (15:00)
[2021-09-04] MEDS ORDERED: KETOROLAC 30 MG/ML VIAL. IVP ONE (15:00)
[2021-09-04] MEDS ORDERED: MIDAZOLAM HCL/PF 2 MG/2 ML VIAL. IV ONE (15:00)
--- NOTE | 2021-09-04 16:16 | RAD ---
DG INTRAOPERATIVE CHOLANGIOGRAM 09/04/2021 1:01 PM INDICATION: Intraoperative cholangiogram COMPARISON: Ultrasound abdomen 09/03/2021 TECHNIQUE: Number of images provided: 3 Fluoroscopy time: 12.6 seconds FINDINGS: Fluoroscopy is provided for intraoperative use. There is opacification of intrahepatic and extrahepat ic biliary tree status post cholecystectomy. IMPRESSION: 1. Intraoperative cholangiogram performed status post cholecystectomy. 2. Please refer to the separate operative report for further details. Electronically signed by: Valentina Alfonso MD (09/04/2021 4:13 PM) NAYAN
[2021-09-04] MEDS: HEPARIN for SUB-Q USE 5,000 UNIT/ML VIAL. SQ SCH ×2 (16:33→21:51)
--- NOTE | 2021-09-04 16:35 | NUR ---
non-administered patients 1400 dose of Heparin due to patient not being 4 hours post-op.
[2021-09-04] MEDS: DOCUSATE SODIUM 100 MG CAPSULE. PO SCH (20:04)
[2021-09-04] MEDS: HYDROcodone/APAP 5/325MG 1 TAB TABLET PO PRN (20:04)
[2021-09-05] MEDS: HYDROcodone/APAP 5/325MG 1 TAB TABLET PO PRN ×3 (02:08→11:01)
[2021-09-05 04:30] VITALS: BP 127/71
[2021-09-05] MEDS: IV RINGERS,LACTATED 1000ML 1,000 ML IV SCH (06:34)
[2021-09-05] MEDS: HEPARIN for SUB-Q USE 5,000 UNIT/ML VIAL. SQ SCH (06:37)
[2021-09-05 06:43] VITALS: BP 119/80
[2021-09-05] MEDS: DOCUSATE SODIUM 100 MG CAPSULE. PO SCH (08:42)
--- NOTE | 2021-09-05 09:33 | PDOC ---
SURGICAL PROGRESS NOTE DATE: 09/05/21 TIME: 09:32 Subjective feeling well tolerating diet Vital Signs Vital Signs Date Time Temp Pulse Resp B/P (MAP) Pulse Ox O2 Delivery O2 Flow Rate FiO2 09/05/21 08:16 98.6 98.6 09/05/21 06:43 72 16 119/80 (93) 97 Room Air 09/04/21 14:51 10.0 I&O Intake and Output 09/05/21 07:00 Intake Total 4010 ml Output Total 420 ml Balance 3590 ml Intake Oral 510 ml IV Total 3500 ml Output Urine Total 370 ml Estimated Blood Loss 50 ml # Voids 2 General: Alert, Oriented X3, Cooperative Abdomen: Soft, Other (lap sites intact ) Labs Laboratory Tests Test 09/03/21 22:57 09/04/21 04:45 09/04/21 08:16 White Blood Count 5.4 x10^3/uL (4.0-11.0) 5.3 x10^3/uL (4.0-11.0) Red Blood Count 3.77 x10^6/uL (3.50-5.40) 3.74 x10^6/uL (3.50-5.40) Hemoglobin 11.6 g/dL (12.0-15.5) 11.3 g/dL (12.0-15.5) Hematocrit 34.9 % (36.0-47.0) 34.8 % (36.0-47.0) Mean Corpuscular Volume 93 fL (79-100) 93 fL (79-100) Mean Corpuscular Hemoglobin 31 pg (25-35) 30 pg (25-35) Mean Corpuscular Hemoglobin Concent 33 g/dL (31-37) 32 g/dL (31-37) Red Cell Distribution Width 14.6 % (11.5-14.5) 14.8 % (11.5-14.5) Platelet Count 329 x10^3/uL (140-400) 310 x10^3/uL (140-400) Neutrophils (%) (Auto) 52 % (31-73) 53 % (31-73) Lymphocytes (%) (Auto) 36 % (24-48) 34 % (24-48) Monocytes (%) (Auto) 10 % (0-9) 10 % (0-9) Eosinophils (%) (Auto) 2 % (0-3) 2 % (0-3) Basophils (%) (Auto) 1 % (0-3) 1 % (0-3) Neutrophils # (Auto) 2.8 x10^3/uL (1.8-7.7) 2.8 x10^3/uL (1.8-7.7) Lymphocytes # (Auto) 1.9 x10^3/uL (1.0-4.8) 1.8 x10^3/uL (1.0-4.8) Monocytes # (Auto) 0.5 x10^3/uL (0.0-1.1) 0.5 x10^3/uL (0.0-1.1) Eosinophils # (Auto) 0.1 x10^3/uL (0.0-0.7) 0.1 x10^3/uL (0.0-0.7) Basophils # (Auto) 0.0 x10^3/uL (0.0-0.2) 0.0 x10^3/uL (0.0-0.2) Sodium Level 141 mmol/L (136-145) 142 mmol/L (136-145) Potassium Level 4.0 mmol/L (3.5-5.1) 4.2 mmol/L (3.5-5.1) Chloride Level 108 mmol/L (98-107) 109 mmol/L (98-107) Carbon Dioxide Level 24 mmol/L (21-32) 24 mmol/L (21-32) Anion Gap 9 (6-14) 9 (6-14) Blood Urea Nitrogen 7 mg/dL (7-20) 7 mg/dL (7-20) Creatinine 0.8 mg/dL (0.6-1.0) 0.9 mg/dL (0.6-1.0) Estimated GFR (Cockcroft-Gault) 73.9 64.5 BUN/Creatinine Ratio 9 (6-20) 8 (6-20) Glucose Level 108 mg/dL (70-99) 89 mg/dL (70-99) Calcium Level 8.7 mg/dL (8.5-10.1) 8.7 mg/dL (8.5-10.1) Total Bilirubin 0.3 mg/dL (0.2-1.0) 0.4 mg/dL (0.2-1.0) Aspartate Amino Transf (AST/SGOT) 14 U/L (15-37) 14 U/L (15-37) Alanine Aminotransferase (ALT/SGPT) 24 U/L (14-59) 21 U/L (14-59) Alkaline Phosphatase 104 U/L (46-116) 98 U/L (46-116) Total Protein 7.2 g/dL (6.4-8.2) 6.9 g/dL (6.4-8.2) Albumin 3.5 g/dL (3.4-5.0) 3.4 g/dL (3.4-5.0) Albumin/Globulin Ratio 0.9 (1.0-1.7) 1.0 (1.0-1.7) Lipase 118 U/L (73-393) Coronavirus (COVID-19)(PCR) Not detected (NOT DETECTD) SARS-CoV-2 Antigen (Rapid) Negative (NEGATIVE) Problem List Problems Medical Problems: (1) Acute cholecystitis Status: Acute Assessment/Plan s/p nislon ok to tx home FU 2 weeks Justicifation of Admission Dx: Justifications for Admission: Justification of Admission Dx: Yes Comments: cholecystitis [employer] Sep 05, 2021 09:33
[2021-09-05 11:00] VITALS: BP 126/70
[2021-09-05] MEDS ORDERED: DICLOFENAC SODIUM 1% TOPICAL GEL 100GM TUBE. TP SCH (12:00)
[2021-09-05] MEDS ORDERED: HYDR-2761 PO (12:11)
--- NOTE | 2021-09-05 12:50 | PDOC ---
[facility] PROGRESS NOTE Date of Service DOS: DATE: 09/05/21 TIME: 12:49 Chief Complaint Chief Complaint Acute cholecystitis History of Present Illness History of Present Illness 09/05: Patient seen at bedside. Reports some postsurgical tenderness. Cleared by general surgery for discharge. Greater than 30 minutes spent managing discharge this patient. Vitals/I&O Vitals/I&O: Vital Signs Date Time Temp Pulse Resp B/P (MAP) Pulse Ox O2 Delivery O2 Flow Rate FiO2 09/05/21 11:01 Room Air 09/05/21 11:00 98.4 76 24 126/70 (88) 98 98.4 09/04/21 14:51 10.0 I & O 0 09/04/21 09/04/21 09/05/21 15:00 23:00 07:00 Intake Total 1800 ml 950 ml 1260 ml Output Total 420 ml Balance 1380 ml 950 ml 1260 ml Physical Exam General: Alert, Oriented X3, Cooperative Heart: Regular rate Lungs: Clear Abdomen: Soft, Other (lap sites intact ) Extremities: No clubbing, No cyanosis Skin: No rashes, No breakdown Assessment and Plan Assessmemt and Plan Problems Medical Problems: (1) Acute cholecystitis Status: Acute Comment Review of Relevant I have reviewed the following items cherry (where applicable) has been applied. Medications: Current Medications Medications (Trade) Dose Ordered Sig/Julius Route PRN Reason Start Time Stop Time Status Last Admin Dose Admin Heparin Sodium (Porcine) (Heparin Sodium) 5,000 unit Q8HRS SQ 09/04/21 14:00 09/05/21 06:37 Ringer's Solution 1,000 ml @ 100 mls/hr Q10H IV 09/04/21 14:30 09/05/21 06:34 Acetaminophen/ Hydrocodone Bitart (Lortab 5/325) 1 tab PRN Q4HRS PRN PO MILD PAIN 1-3 09/04/21 14:30 09/05/21 11:01 Sodium Chloride 1,000 ml @ 25 mls/hr Q24H IV 09/04/21 14:30 09/04/21 14:54 Docusate Sodium (Colace) 100 mg BID PO 09/04/21 21:00 09/05/21 08:42 Justifications for Admission Other Justification RAFITA DAMICO MD Sep 05, 2021 12:50
--- NOTE | 2021-09-05 12:51 | PDOC3 ---
Discharge Summary Visit Information Date of Admission: Sep 04, 2021 Date of Discharge: Sep 05, 2021 Final Diagnosis Problems Medical Problems: (1) Acute cholecystitis Status: Acute Brief Hospital Course Allergies Allergies Coded Allergies Type Severity Reaction Last Updated Verified No Known Drug Allergies 09/08/16 No Vital Signs Vital Signs Date Time Temp Pulse Resp B/P (MAP) Pulse Ox O2 Delivery O2 Flow Rate FiO2 09/05/21 11:01 Room Air 09/05/21 11:00 98.4 76 24 126/70 (88) 98 98.4 09/04/21 14:51 10.0 Lab Results Laboratory Tests Test 09/03/21 22:57 09/04/21 04:45 09/04/21 08:16 White Blood Count 5.4 x10^3/uL (4.0-11.0) 5.3 x10^3/uL (4.0-11.0) Red Blood Count 3.77 x10^6/uL (3.50-5.40) 3.74 x10^6/uL (3.50-5.40) Hemoglobin 11.6 g/dL (12.0-15.5) 11.3 g/dL (12.0-15.5) Hematocrit 34.9 % (36.0-47.0) 34.8 % (36.0-47.0) Mean Corpuscular Volume 93 fL (79-100) 93 fL (79-100) Mean Corpuscular Hemoglobin 31 pg (25-35) 30 pg (25-35) Mean Corpuscular Hemoglobin Concent 33 g/dL (31-37) 32 g/dL (31-37) Red Cell Distribution Width 14.6 % (11.5-14.5) 14.8 % (11.5-14.5) Platelet Count 329 x10^3/uL (140-400) 310 x10^3/uL (140-400) Neutrophils (%) (Auto) 52 % (31-73) 53 % (31-73) Lymphocytes (%) (Auto) 36 % (24-48) 34 % (24-48) Monocytes (%) (Auto) 10 % (0-9) 10 % (0-9) Eosinophils (%) (Auto) 2 % (0-3) 2 % (0-3) Basophils (%) (Auto) 1 % (0-3) 1 % (0-3) Neutrophils # (Auto) 2.8 x10^3/uL (1.8-7.7) 2.8 x10^3/uL (1.8-7.7) Lymphocytes # (Auto) 1.9 x10^3/uL (1.0-4.8) 1.8 x10^3/uL (1.0-4.8) Monocytes # (Auto) 0.5 x10^3/uL (0.0-1.1) 0.5 x10^3/uL (0.0-1.1) Eosinophils # (Auto) 0.1 x10^3/uL (0.0-0.7) 0.1 x10^3/uL (0.0-0.7) Basophils # (Auto) 0.0 x10^3/uL (0.0-0.2) 0.0 x10^3/uL (0.0-0.2) Sodium Level 141 mmol/L (136-145) 142 mmol/L (136-145) Potassium Level 4.0 mmol/L (3.5-5.1) 4.2 mmol/L (3.5-5.1) Chloride Level 108 mmol/L (98-107) 109 mmol/L (98-107) Carbon Dioxide Level 24 mmol/L (21-32) 24 mmol/L (21-32) Anion Gap 9 (6-14) 9 (6-14) Blood Urea Nitrogen 7 mg/dL (7-20) 7 mg/dL (7-20) Creatinine 0.8 mg/dL (0.6-1.0) 0.9 mg/dL (0.6-1.0) Estimated GFR (Cockcroft-Gault) 73.9 64.5 BUN/Creatinine Ratio 9 (6-20) 8 (6-20) Glucose Level 108 mg/dL (70-99) 89 mg/dL (70-99) Calcium Level 8.7 mg/dL (8.5-10.1) 8.7 mg/dL (8.5-10.1) Total Bilirubin 0.3 mg/dL (0.2-1.0) 0.4 mg/dL (0.2-1.0) Aspartate Amino Transf (AST/SGOT) 14 U/L (15-37) 14 U/L (15-37) Alanine Aminotransferase (ALT/SGPT) 24 U/L (14-59) 21 U/L (14-59) Alkaline Phosphatase 104 U/L (46-116) 98 U/L (46-116) Total Protein 7.2 g/dL (6.4-8.2) 6.9 g/dL (6.4-8.2) Albumin 3.5 g/dL (3.4-5.0) 3.4 g/dL (3.4-5.0) Albumin/Globulin Ratio 0.9 (1.0-1.7) 1.0 (1.0-1.7) Lipase 118 U/L (73-393) Coronavirus (COVID-19)(PCR) Not detected (NOT DETECTD) SARS-CoV-2 Antigen (Rapid) Negative (NEGATIVE) Brief Hospital Course Ms. Herrera is a 55 old female who presented with acute cholecystitis. Consultation placed to general surgery. She had laparoscopic appendectomy. She was stable for discharge the next day with outpatient surgical follow-up. Discharge Information Condition at Discharge: Improved Follow Up: Weeks Disposition/Orders: D/C to Home Scheduled Amitriptyline Hcl (Amitriptyline Hcl) 25 Mg Tablet, 1 TAB PO QHS for insomia, #30 Ref 5 (Reported) Entered as Reported by: FELISA LUJAN on 09/04/21430 Last Action: New Order on 09/04/21430 by [facility] Clonazepam (Klonopin) 0.5 Mg Tablet, 0.5 MG PO BID for anxiety, (Reported) Entered as Reported by: FELISA LUJAN on 09/04/21430 Last Action: New Order on 09/04/21430 by [employer] Ziprasidone Hcl (Geodon) 20 Mg Capsule, 1 CAP PO BID for anti psycotic, #60 Ref 2 (Reported) Entered as Reported by: FELISA LUJAN on 09/04/21430 Last Taken: UNKNOWN on Unknown Date & Time Last Action: New Order on 09/04/21430 by [employer] Scheduled PRN Hydrocodone Bit/Acetaminophen (Hydrocodone-Apap 5-325 ) 1 Tab Tablet, 1 TAB PO PRN Q6HRS PRN for SEVERE PAIN 7-10 for 6 Days, #24 Prescribed by: VERNON SAAB MD on 09/05/21 1211 Discontinued Medications Cyclobenzaprine Hcl (Cyclobenzaprine Hcl) 10 Mg Tablet, 10 MG PO TID, #30 Prescribed by: MELISSA MAHER APRN on 10/21/16 1240 Hydrocodone/Apap 10-325 (Dix 10-325 Tablet) 1 Each Tablet, 1 TAB PO Q6HRS PRN for PAIN, #20 Ref 0 Prescribed by: RIO SUNSHINE on 09/08/16 1020 Methylprednisolone (Medrol) 4 Mg Tab.ds.pk, 1 PKG PO UD, #1 Prescribed by: RIO SUNSHINE on 09/08/16 1020 Justicifation of Admission Dx: Justifications for Admission: Justification of Admission Dx: Yes RAFITA DAMICO MD Sep 05, 2021 12:51
--- NOTE | 2021-09-06 14:33 | PATHOLOGY ---
[facility] Accession Number: [id number] . 01 Material submitted: . gallbladder - GALLBLADDER WITH CONTENTS . 01 Clinical history: . CHOLELITHIASIS; CHOLECYSTITIS . 02 Diagnosis: Gallbladder, laparoscopic cholecystectomy: - Cholelithiasis. - Chronic cholecystitis. - Focal mild dysplasia of gallbladder mucosa. (JPM:pit; 09/06/2021) P 09/06/2021 1323 Local . 02 Comment: There is no evidence of malignancy. (JPM:pit; 09/06/2021) . 02 Electronically signed: . Michael Singleton MD, Pathologist NPI- [id number] . 01 Gross description: . Fixative: Formalin Labeled: Gallbladder and contents Specimen received: Intact gallbladder Dimensions: 10.2 x 4.5 x 4.5 cm Serosa: Light cespedes-ferreira to dark cespedes-purple, with light cespedes-yellow to light green, shaggy and cauterized adventitia Lymph node: None identified Mucosa: Velvety and bile-stained Average wall thickness: 0.2 cm Calculi: Present, multiple light cespedes-yellow to light green calculi ranging from 0.5 x 0.3 x 0.2 cm to 2.2 x 1.5 x 1.5 cm and found within the fundus, body, and neck Abnormalities: None identified . A1- Color Matcher body, fundus, and the cystic duct margin. ([facility]; 09/05/2021) [facility] 09/05/2021 1617 Local . 02 Pathologist provided ICD-10: K80.10 . 02 CPT . 728054 Specimen Comment: A courtesy copy of this report has been sent to [phone], [phone] Specimen Comment: [id number] Specimen Comment: Report sent to / DR DAMICO Specimen Comment: A duplicate report has been generated due to demographic updates. Performed at: [address] [facility] [id number] MD Amish Beckman MD Phone: [phone] Performed at: [address] [facility] [id number] MD Michael Singleton MD Phone: [phone]
== END 2021-09-05 15:41 | disposition still patient (30) ==
LOC: ER 20:58 → 2 NORTH 23:36 → INTOOBSV 23:36
PROVIDERS: ADMIT Family Medicine; ATTEND Family Medicine
DX: K81.0 Acute cholecystitis (principal); Z20.822 Contact with and (suspected) exposure to COVID-19; D64.9 Anemia, unspecified; K82.8 Other specified diseases of gallbladder; F31.9 Bipolar disorder, unspecified; F17.210 Nicotine dependence, cigarettes, uncomplicated; Z79.899 Other long term (current) drug therapy; Z98.890 Other specified postprocedural states; Z90.710 Acquired absence of both cervix and uterus; Z90.711 Acquired absence of uterus with remaining cervical stump; Z90.49 Acquired absence of other specified parts of digestive tract; Z98.51 Tubal ligation status
CPT/HCPCS: 36415; 47563; 74300; 76705; 80053; 83690; 85025; 87426; 88304; 96361; 96365; 96372; 96375; 96376; 99284; A4209; A4213; A4314; A4930; A6219; C1887; G0378; J0330; J0690; J0780; J1100; J1170; J1644; J2270; J2405; J2543; J2704; J2710; J3010; J3490; J7030; J7120; Q9967; U0003; G0379; 99285-25